=== PATIENT | male | born 1960 | race Caucasian/White ===

== ENCOUNTER 2021-01-12 21:06 | Emergency (ER) | payer OTHER ==
[~2021-01-12 21:06] MED LIST: BACTRIM DS TAB1 EACH PO; IBUPROFEN600 MG PO; NORCO 10-325 T1 EACH PO; PREDNISONE10 MG PO; PROVENTIL HFA6.7 GM INH; TYLENOL 650 MG650 MG PO
[2021-01-12] MEDS ORDERED: SILVADENE CREAM20 GM TOP (22:27)
[2021-01-12] MEDS ORDERED: PREDNISONE20 MG PO (22:27)
[2021-01-12] MEDS ORDERED: BACTRIM DS TAB1 EACH PO (22:27)
== END 2021-01-12 22:40 | disposition home or self-care (01) ==
LOC: ER1 21:06
DX: T22.211A Burn of second degree of right forearm, initial encounter (principal); F17.200 Nicotine dependence, unspecified, uncomplicated; X08.8XXA Exposure to other specified smoke, fire and flames, initial encounter; Y92.89 Other specified places as the place of occurrence of the external cause; Y99.0 Civilian activity done for income or pay
CPT/HCPCS: 99282